=== PATIENT | male | born 1995 | race Hispanic/Latino ===

== ENCOUNTER 2017-11-06 14:16 | Emergency (ER) | payer BC ==
[2017-11-06] MEDS ORDERED: LIDOCAINE HCL 2% VISCOUS 15 ML UDCUP ONE (14:39)
[2017-11-06] MEDS ORDERED: ONDANSETRON ODT 4 MG TAB ONE (14:39)
[2017-11-06] MEDS ORDERED: MAG HYDROX/AL HYDROX/SIMETH ES 30 ML SUSP UDCUP ONE (14:39)
== END 2017-11-06 15:36 | disposition home or self-care (01) ==
LOC: EDH 14:16
DX: K21.9 Gastro-esophageal reflux disease without esophagitis (principal)